=== PATIENT | female | born 1950 | race Caucasian/White ===

== ENCOUNTER 2016-04-01 17:07 | Observation (INO) | payer OTHER, BC ==
[2016-04-01 17:41] LABS: BASOPHIL 0.6 % (0-2.0); EOSINOPHIL 2.2 % (0-4.5); MCH 28.4 pg (25.7-33.7); MEAN CELL VOLUME 88.7 fl (80-96); MEAN PLT VOLUME 8.8 fl (7.5-11.1); NEUTROPHILS 68.1 % (42.8-82.8); PLATELET COUNT 221 K/MM3 (134-434); RDW 14.6 % (11.6-15.6); WHITE BLOOD COUNT 8.7 K/mm3 (4.0-10.0)
[2016-04-01 17:49] LABS: ALBUMIN 3.6 g/dl (3.5-5.0); ALK PHOS 104 U/L (32-92); ANION GAP 5 (8-16); BILIRUBIN,TOTAL 0.7 mg/dl (0.2-1.0); CALCIUM 9.8 mg/dl (8.4-10.2); CO2 28 mmol/L (22-28); CPK(DFH) 28 IU/L (26-140); CREATININE 0.8 mg/dl (0.6-1.3); GLUCOSE,RANDOM 110 mg/dl (74-106); SGOT/AST 54 U/L (10-42); SGPT/ALT 19 U/L (10-40); TOT PROT 7.1 g/dl (6.4-8.3)
--- NOTE | 2016-04-01 17:49 | PDOC ---
History of Present Illness - History of Present Illness Initial Comments: 04/01/16 18:26 Patient is a 65 year old female with significant medical hx of CVA, AFib (on pradaxa and digoxin), HTN, HLD, and DVT who is presenting to the ED via EMS with two hours of pleuritic chest pain and shortness of breath. Patient reports a sudden onset of chest pain that is localized to the center of her chest and is non-radiating. The patient reports that her chest pain did not relieve with the NTG given in the ambulance. The patient is ambulatory at home. Denies fever, chills, strenuous activity, dizziness, nausea, vomiting, lower extremity edema, past MIs or stents. Last stress test and echo: two and a half years ago. PCP: Dr. Diehl <Dorinda Avery - Last Filed: 04/01/16 18:26> <Bere Smyth - Last Filed: 04/01/16 18:55> - General Chief Complaint: Chest Pain Stated Complaint: CHEST PAIN Time Seen by Provider: 04/01/16 17:11 Past History <Dorinda Avery - Last Filed: 04/01/16 18:26> - Past Medical History Anemia: No Asthma: No Cancer: No Cardiac Disorders: Yes (ATRIAL FIBRILLATION) CVA: Yes (04/2010) COPD: No CHF: No Dementia: No Diabetes: No GI Disorders: No Disorders: No HTN: Yes Hypercholesterolemia: Yes Liver Disease: No Seizures: No Thyroid Disease: No - Surgical History Abdominal Surgery: Yes Appendectomy: No Cardiac Surgery: No Cholecystectomy: Yes Lung Surgery: No Neurologic Surgery: No Orthopedic Surgery: Yes - Psycho/Social/Smoking Cessation Hx Anxiety: No Suicidal Ideation: No Smoking History: Never smoked Have you smoked in the past 12 months: No Hx Alcohol Use: Yes (weekends) Substance Use Type: None Hx Substance Use Treatment: No <Bere Smyth - Last Filed: 04/01/16 18:55> - Past Medical History Allergies/Adverse Reactions: Allergies Allergy/AdvReac Type Severity Reaction Status Date / Time No Known Allergies Allergy Verified 04/01/16 17:09 Home Medications: Ambulatory Orders Atorvastatin Calcium 10 mg PO HS 04/01/16 Dabigatran Etexilate Mesylate [Pradaxa -] 150 mg PO BID 04/01/16 Digoxin [Digitek] 125 mcg PO DAILY 04/01/16 Metoprolol Tartrate [Lopressor -] 25 mg PO BID 04/01/16 Ramipril 5 mg PO DAILY 04/01/16 Review of Systems - Review of Systems Comments:: 04/01/16 18:27 CONSTITUTIONAL: Absent: fever, chills, diaphoresis, generalized weakness, malaise, loss of appetite HEENT: Absent: rhinorrhea, nasal congestion, throat pain, throat swelling, difficulty swallowing, mouth swelling, ear pain, eye pain, visual changes CARDIOVASCULAR: Present: pleuritic chest pain Absent: syncope, palpitations, irregular heart rate, lightheadedness, peripheral edema RESPIRATORY: Present: shortness of breath Absent: cough, dyspnea with exertion, orthopnea, wheezing, stridor, hemoptysis GASTROINTESTINAL: Absent: abdominal pain, abdominal distension, nausea, vomiting, diarrhea, constipation, melena, hematochezia GENITOURINARY: Absent: dysuria, frequency, urgency, hesitancy, hematuria, flank pain, genital pain MUSCULOSKELETAL: Absent: myalgia, arthralgia, joint swelling SKIN: Absent: rash, itching, pallor HEMATOLOGIC/IMMUNOLOGIC: Absent: easy bleeding, easy bruising, lymphadenopathy, frequent infections ENDOCRINE: Absent: unexplained weight gain, unexplained weight loss, heat intolerance, cold intolerance NEUROLOGIC: Absent: headache, focal weakness or paresthesia, dizziness, unsteady gait, seizure, mental status changes, bladder or bowel incontinence. PSYCHIATRIC: Absent: anxiety, depression, suicidal or homicidal ideation, hallucinations <Dorinda Avery - Last Filed: 04/01/16 18:26> *Physical Exam - Vital Signs Last Vital Signs Temp Pulse Resp BP Pulse Ox 98 F 77 18 162/60 98 04/01/16 17:10 04/01/16 17:10 04/01/16 17:10 04/01/16 17:10 04/01/16 17:10 - Physical Exam Comments: 04/01/16 18:28 GENERAL: Morbidly obese. Awake and alert. No acute distress. HEENT: Normocephalic, atraumatic. PERRLA, EOMI. No conjunctival pallor. Sclera are non- icteric. Moist mucous membranes. Oropharynx is clear. NECK: Supple. Full ROM. No JVD. Carotid pulses 2+ and symmetric, without bruits. No thyromegaly. No lymphadenopathy. CARDIOVASCULAR: Reproducible midsternal chest pain. Regular rate and rhythm. Systolic murmur. No rubs or gallops. Distal pulses are 2+ and symmetric. PULMONARY: No evidence of respiratory distress. Lungs clear to auscultation bilaterally. No wheezing, rales or rhonchi. ABDOMINAL: Soft. Non-tender. Non-distended. No rebound or guarding. No organomegaly. Normoactive bowel sounds. MUSCULOSKELETAL: Normal range of motion at all joints. No bony deformities or tenderness. No CVA tenderness. EXTREMITIES: No cyanosis. No clubbing. No edema. No calf tenderness. SKIN: Warm and dry. Normal capillary refill. No rashes. No jaundice. NEUROLOGICAL: Alert, awake, appropriate. Cranial nerves 2-12 intact. Normal speech. Gait is normal without ataxia. PSYCHIATRIC: Cooperative. Good eye contact. Appropriate mood and affect. <Dorinda Avery - Last Filed: 04/01/16 18:26> - Vital Signs Last Vital Signs Temp Pulse Resp BP Pulse Ox 98 F 77 18 162/60 98 04/01/16 17:10 04/01/16 17:10 04/01/16 17:10 04/01/16 17:10 04/01/16 17:10 <Bere Smyth - Last Filed: 04/01/16 18:55> Heart Score/ECG Review #1 04/01/16 18:29 Atrial fibrillation at 73 bpm Abnormal ECG <Dorinda Avery - Last Filed: 04/01/16 18:26> ED Treatment Course - LABORATORY CBC & Chemistry Diagram: 04/01/16 17:20 04/01/16 17:20 - ADDITIONAL ORDERS Additional order review: Laboratory Results 04/01/16 04/01/16 04/01/16 17:20 17:20 17:20 INR 1.30 H PTT (Actin FS) 35.7 Sodium 137 Potassium 4.5 Chloride 104 Carbon Dioxide 28 Anion Gap 5 L BUN 13 D Creatinine 0.8 Creat Clearance w eGFR > 60 Random Glucose 110 H Calcium 9.8 Total Bilirubin 0.7 AST 54 H D ALT 19 D Alkaline Phosphatase 104 H D Creatine Kinase 28 Troponin I < 0.03 L Total Protein 7.1 D Albumin 3.6 D 04/01/16 17:20 RBC 4.96 D MCV 88.7 MCHC 32.0 RDW 14.6 MPV 8.8 Neutrophils % 68.1 Lymphocytes % 20.9 D Monocytes % 8.2 Eosinophils % 2.2 D Basophils % 0.6 <Dorinda Avery - Last Filed: 04/01/16 18:26> - LABORATORY CBC & Chemistry Diagram: 04/01/16 17:20 04/01/16 17:20 <Bere Smyth - Last Filed: 04/01/16 18:55> *DC/Admit/Observation/Transfer - Attestations Scribe Attestion: 04/01/16 18:30 Documentation prepared by Dorinda Avery, acting as medical oncologist for Bere Smyth MD. <Dorinda Avery - Last Filed: 04/01/16 18:26> - Discharge Dispostion Admit: Yes <Bere Smyth - Last Filed: 04/01/16 18:55> Diagnosis at time of Disposition: Chest pain in adult Atrial fibrillation Qualifiers: Atrial fibrillation type: chronic Qualified Code(s): I48.2 - Chronic atrial fibrillation - Discharge Dispostion Condition at time of disposition: Guarded - Referrals Referrals: Billy Diehl [Primary Care Provider] - Dilip Merritt MD [Staff Physician] -
[2016-04-01 17:57] LABS: TROPONIN I (DFP) < 0.03 ng/ml (0.03-0.50)
[2016-04-01] MEDS ORDERED: ACETAMINOPHEN INJECTION 100 ML IVPB ONE (17:58)
[2016-04-01 18:00] LABS: ACTIVATED PTT 35.7 SECONDS (24.0-38.9)
[2016-04-01 18:04] LABS: INR 1.3 (0.82-1.09); PROTHROMBIN TIME (PATIENT) 14.2 SEC (10.2-13.0)
[2016-04-01] MEDS ORDERED: ACETAMINOPHEN 1000 MG/100 ML VIAL (NON FORMULARY) IVPB ONE (18:43)
--- NOTE | 2016-04-01 21:06 | HP ---
<Dinora Bishop - Last Filed: 04/01/16 22:16> CHIEF COMPLAINT: Mid Sternal Chest pain PCP: Dr. Diehl HISTORY OF PRESENT ILLNESS: The patient is a 65 yo F with a PMHx of CVA, AFib (on pradaxa and digoxin), HTN , HLD, DVT who presented to the ED today via EMS with sudden onset of mid sternal, nonradiating chest pain with associated shortness of breath. The patient states reports chest pain is exacerbated upon deep inspiration. Patient reports NTG administered by EMS did not alleviate the pain. Upon evaluation, patient currently endorses mild chest pain (4/10 in severity). She denies any headache, dizziness, lightheadedness or diaphoresis. She denies any fever, chills, nausea, vomiting, diarrhea, constipation or abdominal pain. She denies any dysuria, frequency, urgency or hematuria. ER course was notable for: (1) Troponin 0.03 (2) EKG without ST changes (3) Chest Xray Recent Travel: Denies PAST MEDICAL HISTORY: Atrial Fibrillation Hypertension DVT CVA with bilateral upper extremity residual weakness Hyperlipidemia PAST SURGICAL HISTORY: Tonsil Removal Surgery Social History: Smoking:Denies Alcohol: Former EtOH Weekend drinker, no current alcohol abuse. Drugs: Denies Family History: Mother- Hodgkin's Disease Father- Liver Cirrhosis Brother- Hepatitis Allergies No Known Allergies Allergy (Verified 04/01/16 17:09) HOME MEDICATIONS: 3 Medication Instructions Recorded Atorvastatin Calcium 10 mg PO HS 04/01/16 Dabigatran Etexilate Mesylate 150 mg PO BID 04/01/16 [Pradaxa -] Digoxin [Digitek] 125 mcg PO DAILY 04/01/16 Metoprolol Tartrate [Lopressor -] 25 mg PO BID 04/01/16 Ramipril 5 mg PO DAILY 04/01/16 REVIEW OF SYSTEMS CONSTITUTIONAL: Absent: fever, chills, diaphoresis, generalized weakness, malaise, loss of appetite, weight change HEENT: Absent: rhinorrhea, nasal congestion, throat pain, throat swelling, difficulty swallowing, mouth swelling, ear pain, eye pain, visual changes CARDIOVASCULAR: +chest pain Absent: syncope, palpitations, irregular heart rate, lightheadedness, peripheral edema RESPIRATORY: + SOB Absent: cough, dyspnea with exertion, orthopnea, wheezing, stridor, hemoptysis GASTROINTESTINAL: Absent: abdominal pain, abdominal distension, nausea, vomiting, diarrhea, constipation, melena, hematochezia GENITOURINARY: Absent: dysuria, frequency, urgency, hesitancy, hematuria, flank pain, genital pain MUSCULOSKELETAL: Absent: myalgia, arthralgia, joint swelling, back pain, neck pain SKIN: Absent: rash, itching, pallor HEMATOLOGIC/IMMUNOLOGIC: Absent: easy bleeding, easy bruising, lymphadenopathy, frequent infections ENDOCRINE: Absent: unexplained weight gain, unexplained weight loss, heat intolerance, cold intolerance NEUROLOGIC: Absent: headache, focal weakness or paresthesias, dizziness, unsteady gait, seizure, mental status changes, bladder or bowel incontinence PSYCHIATRIC: Absent: anxiety, depression, suicidal or homicidal ideation, hallucinations. PHYSICAL EXAMINATION Vital Signs - 24 hr 3 04/01/16 04/01/16 04/01/16 17:10 17:15 20:20 Temperature 98 F 98 F Pulse Rate 77 69 Pulse Rate [ 71 Left Apical] Respiratory 18 16 Rate Blood Pressure 162/60 Blood Pressure 154/98 [Right Arm] O2 Sat by Pulse 98 98 99 Oximetry (%) GENERAL: +Morbidly obese. Awake, alert, and fully oriented, in no acute distress. HEAD: Normal with no signs of trauma. EYES: Pupils equal, round and reactive to light, extraocular movements intact, sclera anicteric, conjunctiva clear. No lid lag. EARS, NOSE, THROAT: Ears normal, nares patent, oropharynx clear without exudates. Moist mucous membranes. NECK: Normal range of motion, supple without lymphadenopathy, JVD, or masses. LUNGS: Breath sounds equal, clear to auscultation bilaterally. No wheezes, and no crackles. No accessory muscle use. HEART: Irregular rate and rhythm, normal S1 and S2 without murmur, rub or gallop. ABDOMEN: Soft, nontender, not distended, normoactive bowel sounds, no guarding, no rebound, no masses. No hepatomegaly or splenomegaly. MUSCULOSKELETAL: Normal range of motion at all joints. No bony deformities or tenderness. No CVA tenderness. UPPER EXTREMITIES: 2+ pulses, warm, well-perfused. No cyanosis. No clubbing. Cap refill <2 seconds. No peripheral edema. LOWER EXTREMITIES: 2+ pulses, warm, well-perfused. No calf tenderness. No peripheral edema. NEUROLOGICAL: Cranial nerves II-XII intact. Normal speech. Normal gait. PSYCHIATRIC: Cooperative. Good eye contact. Appropriate mood and affect. SKIN: Warm, dry, normal turgor, no rashes or lesions noted. Laboratory Results - last 24 hr 3 04/01/16 04/01/16 04/01/16 17:20 17:20 17:20 WBC 8.7 RBC 4.96 D Hgb 14.1 D Hct 44.0 D MCV 88.7 MCHC 32.0 RDW 14.6 Plt Count 221 MPV 8.8 Neutrophils % 68.1 Lymphocytes % 20.9 D Monocytes % 8.2 Eosinophils % 2.2 D Basophils % 0.6 INR 1.30 H PTT (Actin FS) 35.7 Sodium 137 Potassium 4.5 Chloride 104 Carbon Dioxide 28 Anion Gap 5 L BUN 13 D Creatinine 0.8 Creat Clearance w eGFR > 60 Random Glucose 110 H Calcium 9.8 Total Bilirubin 0.7 AST 54 H D ALT 19 D Alkaline Phosphatase 104 H D Creatine Kinase 28 Troponin I < 0.03 L Total Protein 7.1 D Albumin 3.6 D EKG Afib with rate of [address]-T wave changes Chest Xray No obvious infiltrates or effusions. Final read pending. Documentation prepared by Dinora Bishop, acting as medical massage therapist for Yakelin Soni NP <Yakelin Soni - Last Filed: 04/02/16 06:49> ASSESSMENT AND PLAN 65yF with a PMHx of CVA, AFib (on pradaxa and digoxin), HTN, HLD, DVT who presented to the ED today via EMS with sudden onset of mid sternal, nonradiating chest pain with associated shortness of breath. She is being admitted for observation to r/o [place]. Chest pain - troponin neg x 2, trend x 1 more - pain improved after IV tylenol in ED - no response to NTG in ED - continuous cardiac monitoring - likely not cardiac, reproducible on palpation, if troponin neg x 3, and no ectopy on monitor, can go home and f/u with PCP/comparison shopper for further outpt workup atrial fibrillation - cont dig, metoprolol as rate controlled - cont pradaxa for CVA PPX HTN - cont lopressor, BP well controlled DVT PPX - on pradaxa FEN - tolerating po, defer IVF - BMP stable - low sodium diet as tolerated Dispo: Pt currently requires cardiac monitoring/observation. Visit type - Emergency Visit Emergency Visit: Yes ED Registration Date: 04/01/16 Care time: The patient presented to the Emergency Department on the above date and was hospitalized for further evaluation of their emergent condition. - New Patient This patient is new to me today: Yes Date on this admission: 04/01/16 - Critical Care Critical Care patient: No
[2016-04-01] MEDS: DABIGATRAN ETEXILATE MESYLATE 150 MG CAPSULE PO SCH (21:42)
[2016-04-01] MEDS: METOPROLOL TARTRATE 25 MG TABLET (FP) PO SCH (21:42)
[2016-04-01] MEDS: ATORVASTATIN CA 10 MG TABLET (FP) PO SCH (21:42)
[2016-04-01 22:29] VITALS: BMI 39.3
[2016-04-01] MEDS ORDERED: INFLUENZA VACCINE 45 MCG/0.5 ML (MDV 16-17) IM ONE (22:29)
[2016-04-02 09:37] LABS: CPK(DFH) 28 IU/L (26-140)
[2016-04-02] MEDS: DABIGATRAN ETEXILATE MESYLATE 150 MG CAPSULE PO SCH ×2 (09:45→21:35)
[2016-04-02] MEDS: DIGOXIN 0.125 MG TABLET (FP) PO SCH (09:51)
[2016-04-02] MEDS ORDERED: RAMIPRIL 5 MG CAPSULE (FP) PO SCH (10:00)
[2016-04-02 10:21] LABS: TROPONIN I (DFP) < 0.03 ng/ml (0.03-0.50)
--- NOTE | 2016-04-02 12:29 | PN ---
Physical Exam: SUBJECTIVE: Patient seen and examined, patient reports feeling well, denies any chest pain or shortness of breath.. OBJECTIVE: patient is a 65 yo F with a PMHx of CVA, AFib (on pradaxa and digoxin), HTN, HLD, DVT, patient was admitted to observations for chest pain. Vital Signs Period Temp Pulse Resp BP Sys/Saleem Pulse Ox Last 24 Hr 97.4 F-98.2 F 45-76 16-20 150-161/90-98 95-99 GENERAL: +Morbidly obese. Awake, alert, and fully oriented, in no acute distress. HEAD: Normal with no signs of trauma. EYES: Pupils equal, round and reactive to light, extraocular movements intact, sclera anicteric, conjunctiva clear. No lid lag. EARS, NOSE, THROAT: Ears normal, nares patent, oropharynx clear without exudates. Moist mucous membranes. NECK: Normal range of motion, supple without lymphadenopathy, JVD, or masses. LUNGS: Breath sounds equal, clear to auscultation bilaterally. No wheezes, and no crackles. No accessory muscle use. HEART: Irregular rate and rhythm, normal S1 and S2 without murmur, rub or gallop. ABDOMEN: Soft, nontender, not distended, normoactive bowel sounds, no guarding, no rebound, no masses. No hepatomegaly or splenomegaly. MUSCULOSKELETAL: Normal range of motion at all joints. No bony deformities or tenderness. No CVA tenderness. UPPER EXTREMITIES: 2+ pulses, warm, well-perfused. No cyanosis. No clubbing. Cap refill <2 seconds. No peripheral edema. LOWER EXTREMITIES: 2+ pulses, warm, well-perfused. No calf tenderness. No peripheral edema. NEUROLOGICAL: Cranial nerves II-XII intact. Normal speech. Normal gait. PSYCHIATRIC: Cooperative. Good eye contact. Appropriate mood and affect. SKIN: Warm, dry, normal turgor, no rashes or lesions noted. Laboratory Results - last 24 hr 04/01/16 04/02/16 04/02/16 20:00 07:00 07:00 Creatine Kinase 28 Troponin I 0.00 < 0.03 L Digoxin 0.3659 L 04/02/16 04/02/16 08:10 08:10 Creatine Kinase Cancelled Troponin I Cancelled Cancelled Digoxin Active Medications Generic Name Dose Route Start Last Admin Trade Name Freq PRN Reason Stop Dose Admin Atorvastatin Calcium 10 mg 04/01/16 22:00 04/01/16 21:42 Lipitor - PO 10 mg HS IZABELA Administration Dabigatran 150 mg 04/01/16 22:00 04/02/16 09:45 Pradaxa - PO 150 mg BID IZABELA Administration Digoxin 0.125 mg 04/02/16 10:00 04/02/16 09:51 Lanoxin - PO Not Given DAILY [facility] Metoprolol Tartrate 25 mg 04/01/16 22:00 04/01/16 21:42 Lopressor - PO 25 mg BID IZABELA Administration Ramipril 5 mg 04/02/16 10:00 Altace - PO DAILY [facility] ASSESSMENT/PLAN: 1) card Chest pain - pain relieved after tylenol, not cardiac on orgin - troponin x 3 wnl afib -slow ventricular rate noted, pt is asymptomatic - digoxin wnl, lopressor held HTN - ramipril increased to 10mg - appreciate cardiology input DVT PPX - on pradaxa FEN - tolerating po, defer IVF - BMP stable - low sodium diet as tolerated Dispo: Pt currently requires cardiac monitoring/observation. Visit type - Emergency Visit Emergency Visit: Yes ED Registration Date: 04/01/16 Care time: The patient presented to the Emergency Department on the above date and was hospitalized for further evaluation of their emergent condition. - New Patient This patient is new to me today: No - Critical Care Critical Care patient: No - Discharge Referral Referred to [facility] Med P.C.: No
[2016-04-02] MEDS ORDERED: RAMIPRIL 5 MG CAPSULE (FP) PO ONE ×2 (13:15→14:45)
[2016-04-02] MEDS: METOPROLOL TARTRATE 25 MG TABLET (FP) PO SCH (14:01)
--- NOTE | 2016-04-02 15:20 | CON.CARD ---
Cardiology Consult (text) - Consultation Consultation Note: CC: bradycardia hpi: 65 with hx htn, afib on pradaxa, cva, carotid stenosis (chronic LICA occlusion, plaque in CRISTAL), hld, here with cp, noted to have bradycardia over night. Patient remained asymptomatic. Digoxin and metoprolol held today. BP slightly elevated and was given an extra 5 mg of ramipril. Denies prior h/o syncope/ presyncope, but documented presyncope 2013 (was not tania on that admission) Presenting cp now resolved. (ttp, non-exertional) At baseline patient only ambulates in home, but mainly sits all day 2/2 LE weakness and discomfort. Chronic fatigue. Chronic mild LE edema. No orthopnea, pnd, sob, palps, dizziness, bleeding or transient neurologic symptoms. No f/c/s, n/v/d, h/a, rashes, visual disturbances. Cardio Dr Diehl. pmh: per hpi psh: cholecystectomy social: no tob, social etoh ros: per hpi fam: no cardiac hx meds: Ambulatory Orders Atorvastatin Calcium 10 mg PO HS 04/01/16 Dabigatran Etexilate Mesylate [Pradaxa -] 150 mg PO BID 04/01/16 Digoxin [Digitek] 125 mcg PO DAILY 04/01/16 Metoprolol Tartrate [Lopressor -] 25 mg PO BID 04/01/16 Ramipril 5 mg PO DAILY 04/01/16 Current Medications Atorvastatin Calcium (Lipitor -) 10 mg PO HS [facility] Last Admin: 04/01/16 21:42 Dose: 10 mg Dabigatran (Pradaxa -) 150 mg PO BID [facility] Last Admin: 04/02/16 09:45 Dose: 150 mg Digoxin (Lanoxin -) 0.125 mg PO DAILY [facility] Last Admin: 04/02/16 09:51 Dose: Not Given Metoprolol Tartrate (Lopressor -) 25 mg PO BID [facility] Last Admin: 04/02/16 14:01 Dose: Not Given Ramipril (Altace -) 10 mg PO DAILY [facility] Vital Signs - 24 hr 04/01/16 04/01/16 04/01/16 17:10 17:15 20:20 Temperature 98 F 98 F Pulse Rate 77 69 Pulse Rate [ 71 Left Apical] Respiratory 18 16 Rate Blood Pressure 162/60 Blood Pressure 154/98 [Right Arm] O2 Sat by Pulse 98 98 99 Oximetry (%) 04/01/16 04/02/16 04/02/16 21:00 02:56 06:29 Temperature 98.2 F 97.4 F L Pulse Rate 76 54 L Pulse Rate [ Left Apical] Respiratory 20 20 20 Rate Blood Pressure 150/90 161/94 Blood Pressure [Right Arm] O2 Sat by Pulse 95 95 97 Oximetry (%) 04/02/16 04/02/16 09:51 14:33 Temperature 98.5 F Pulse Rate 45 L 57 L Pulse Rate [ Left Apical] Respiratory 18 Rate Blood Pressure 160/80 Blood Pressure [Right Arm] O2 Sat by Pulse 98 Oximetry (%) Intake & Output 03/31/16 04/01/16 04/02/16 04/03/16 07:59 07:59 07:59 07:59 Intake Total 250 850 Output Total 250 Balance 0 850 Weight 251 lb 1 oz nad, no jvd irreg, s1s2 2/6 sys murmur at lsb cta b/l, nl eff aaox3 no le e/c/c abd nt nd pos bs pos dp/pt, no carotid bruits no jaundice/diaphoresis aaox3 CBC, BMP 04/01/16 17:20 04/01/16 17:20 Laboratory Tests 04/01/16 04/01/16 04/01/16 17:20 17:20 20:00 Total Bilirubin 0.7 AST 54 H D ALT 19 D Alkaline Phosphatase 104 H D Troponin I < 0.03 L 0.00 Albumin 3.6 D Digoxin 04/02/16 04/02/16 07:00 07:00 Total Bilirubin AST ALT Alkaline Phosphatase Troponin I < 0.03 L Albumin Digoxin 0.3659 L EKG: afib, 73 bpm. no ischemic changes. tele: rate controlled afib. VR 50's-60's overnight. 60's-80's today. Isolated RR intervals prolonged causing alarms --> but HR trend reasonable. No sig pauses (longest 2.4 sec). cxr: Platelike atelectasis vs. fibrosis left mid lung. echo 02/2014: nl lv s/f, rv tds, mild, mr, mild ar mibi 02/2014: no ischemia a/p: 65 with hx htn, afib on pradaxa, cva, carotid stenosis (chronic LICA occlusion, plaque in CRISTAL), hld, here with cp, noted to have bradycardia. afib: - Has been stable on this rate control regimen for about 7 years. VR, 50s-60' s overnight, benign finding, but given patient's chronic fatigue can give trial of reduced metoprolol dose. (redose metoprolol tartrate 25 mg x 1 tonight and start metoprolol succinate 25 mg/day tomorrow am. digoxin level not supratherapeutic, would continue. Will need close follow up with Dr. Myers to decide whether to resume original dosing. - Continue ac with pradaxa. - Consider sleep study evaluation as outpatient. cp: - Atypical/msk, Resolved No evidence for ACS. htn: - slightly elevated off metoprolol. Would continue increased dose of ramipril ( 10 mg/day) and monitor for improvement. hld: - Stable on statin.
[2016-04-02] MEDS ORDERED: METOPROLOL TARTRATE 25 MG TABLET (FP) PO ONE (17:46)
[2016-04-02] MEDS: ATORVASTATIN CA 10 MG TABLET (FP) PO SCH (21:35)
[2016-04-03 06:25] VITALS: TEMP 98
[2016-04-03 07:46] VITALS: BP 157/87
--- NOTE | 2016-04-03 08:23 | PN ---
Progress Note, Physician Chief Complaint: cp, afib with bradycardia History of Present Illness: no presyncope/dizzy no sob, orthopnea no more cp no palpitations - Current Medication List Current Medications: Active Medications Atorvastatin Calcium (Lipitor -) 10 mg PO HS [facility] Last Admin: 04/02/16 21:35 Dose: 10 mg Dabigatran (Pradaxa -) 150 mg PO BID [facility] Last Admin: 04/02/16 21:35 Dose: 150 mg Digoxin (Lanoxin -) 0.125 mg PO DAILY [facility] Last Admin: 04/02/16 09:51 Dose: Not Given Metoprolol Succinate (Toprol Xl -) 25 mg PO DAILY [facility] Ramipril (Altace -) 10 mg PO DAILY [facility] - Objective Vital Signs: Vital Signs Temperature 98.0 F 04/03/16 06:00 Pulse Rate 71 04/03/16 07:15 Respiratory Rate 17 04/03/16 06:00 Blood Pressure 157/87 04/03/16 07:15 O2 Sat by Pulse Oximetry (%) 97 04/03/16 06:22 Constitutional: Yes: No Distress, Calm, Obese Cardiovascular: Yes: Pulse Irregular, S1, S2. No: Gallop, Murmur Respiratory: Yes: Regular, CTA Bilaterally. No: Accessory Muscle Use, Rales, Wheezes Extremities: No: Cold Edema: No Neurological: Yes: Alert, Oriented Psychiatric: No: Agitated Labs: INR, PTT INR 1.30 (0.82-1.09) H 04/01/16 17:20 - ....Imaging EKG: Other (tele: AF hr's 50s-70s; at times transiently prolonged R-R intervals , longest 2.4 seconds (early am timing)) Assessment/Plan echo 02/2014: nl lv s/f, rv tds, mild, mr, mild ar mibi 02/2014: no ischemia a/p: 65 with hx htn, afib on pradaxa, cva, carotid stenosis (chronic LICA occlusion, plaque in CRISTAL), hld, here with cp, noted to have bradycardia. afib: - Has been stable on metopr 25 bid plus digoxin for years - no h/o tania sx's or syncope - telem here benign--transiently prolonged RR intervals during overnight/early am hours are related to normal enhanced vagal tone and have no pathological implications - metopr changed to qd here, reasonable given her chronic fatigue (if no better as outpt, and HRs ok, dr vidal can consider going back up to bid) - cont dig (level good here) - Continue ac with pradaxa. - no further inpt cardio w/u needed atypical cp: - pleuritic features, overall appears to have been m-skel etiology, ? costochondritis; - sx's resolved - no isch ecg changes, trop neg x 4, - no further inpt w/u required htn: - 130s-150s at present -cont metopr and ramipril as doing hld: - Stable on statin.
[2016-04-03] MEDS ORDERED: METOPROLOL SUCCINATE 25 MG TAB.SR.24H (FP) PO SCH (10:00)
[2016-04-03] MEDS ORDERED: RAMIPRIL 5 MG CAPSULE (FP) PO SCH (10:00)
[2016-04-03 10:25] VITALS: PULSE 56
[2016-04-03] MEDS: DIGOXIN 0.125 MG TABLET (FP) PO SCH (10:25)
[2016-04-03] MEDS: DABIGATRAN ETEXILATE MESYLATE 150 MG CAPSULE PO SCH (10:25)
[2016-04-03 10:26] LABS: BASOPHIL 0.9 % (0-2.0); EOSINOPHIL 2.5 % (0-4.5); MCHC 32.5 g/dl (32.0-36.0); MEAN PLT VOLUME 8.8 fl (7.5-11.1); NEUTROPHILS 68.6 % (42.8-82.8); PLATELET COUNT 230 K/MM3 (134-434); RDW 14.4 % (11.6-15.6); WHITE BLOOD COUNT 9.4 K/mm3 (4.0-10.0)
[2016-04-03 11:11] LABS: CALCIUM 10.1 mg/dl (8.4-10.2); CREATININE 0.9 mg/dl (0.6-1.3)
--- NOTE | 2016-04-03 12:03 | DS ---
Physical Exam: SUBJECTIVE: Patient seen and examined. Reports no further chest pain or SOB. No further episodes severe bradycardia noted on monitor. OBJECTIVE: Vital Signs - 24 hr 3 04/02/16 04/02/16 04/02/16 14:33 21:00 22:00 Temperature 98.5 F Pulse Rate 57 L 80 Respiratory 18 18 18 Rate Blood Pressure 160/80 139/72 O2 Sat by Pulse 98 98 Oximetry (%) 3 04/03/16 04/03/16 04/03/16 06:00 06:22 07:15 Temperature 98.0 F Pulse Rate 62 71 Respiratory 17 Rate Blood Pressure 132/73 157/87 O2 Sat by Pulse 97 Oximetry (%) PHYSICAL EXAM GENERAL: The patient is awake, alert, and fully oriented, in no acute distress. HEAD: Normal with no signs of trauma. EYES: PERRL, extraocular movements intact, sclera anicteric, conjunctiva clear. ENT: Ears normal, nares patent, oropharynx clear without exudates, moist mucous membranes. NECK: Trachea midline, full range of motion, supple. LUNGS: Breath sounds equal, clear to auscultation bilaterally, no wheezes, no crackles, no accessory muscle use. HEART: Regular rate and rhythm, S1, S2 without murmur, rub or gallop. ABDOMEN: Soft, nontender, nondistended, normoactive bowel sounds, no guarding, no rebound, no hepatosplenomegaly, no masses. EXTREMITIES: 2+ pulses, warm, well-perfused, no edema. NEUROLOGICAL: Cranial nerves II through XII grossly intact. Normal speech, gait not observed. PSYCH: Normal mood, normal affect. SKIN: Warm, dry, normal turgor, no rashes or lesions noted. Laboratory Results - last 24 hr 3 04/02/16 04/03/16 04/03/16 07:00 10:00 10:00 WBC 9.4 RBC 4.73 Hgb 13.7 Hct 42.1 MCV 89.0 MCHC 32.5 RDW 14.4 Plt Count 230 MPV 8.8 Neutrophils % 68.6 Lymphocytes % 20.0 Monocytes % 8.0 Eosinophils % 2.5 Basophils % 0.9 Sodium 141 Potassium 5.3 H Chloride 107 Carbon Dioxide 28 Anion Gap 6 L BUN 12 Creatinine 0.9 Random Glucose 108 H Calcium 10.1 Digoxin 0.3659 L HOSPITAL COURSE: Date of Admission:04/01/16 Date of Discharge: 04/03/16 The patient is a 65 yo F with a PMHx of CVA, AFib (on pradaxa and digoxin), HTN , HLD, DVT who presented to the ED on 04/01/16 via EMS with sudden onset of mid sternal, nonradiating chest pain with associated shortness of breath. Acute AZ ruled out; troponin negative x 3. pt was noted with episodes of bradycardia on monitor overnight 04/01-04/02. Digoxin and metoprolol held with no further bradycardic episodes. Pt evaluated by cardiology with recommendation to change lopressor 25mg BID to toprol Xl 25mg and increase ramipril to 10mg. Pt cleared for dc home from cardiology standpoint. Labs this morning revealed potassium 5.3. Pt advised to contact PCP Tuesday morning to schedule repeat labs VIET. Pt dc home. chest pain - acute AZ r/o - f/u with PCP Afib with bradycardia - DC lopressor 25mg BID, start toprol 25mg daily, cont digoxin HTN - increase ramipril to 10mg qd Hyperkalemia - borderline, f/u with PCP for repeat labs on tuesday HLD - cont statin Minutes to complete discharge: 45 Discharge Summary Reason For Visit: CHEST PAIN Current Active Problems Atrial fibrillation (Acute) Chest pain in adult (Acute) Condition: Stable - Instructions Diet, Activity, Other Instructions: Return to the emergency room for new, worsening or persistent symptoms. Your potassium on day of discharge was 5.3 which is borderline high. You must follow up with Dr. Diehl for repeat blood work VIET next week. Referrals: Billy Diehl [Primary Care Provider] - (call tuesday for repeat lab work) Disposition: HOME - Home Medications Comprehensive Discharge Medication List: Ambulatory Orders Atorvastatin Calcium 10 mg PO HS 04/01/16 Dabigatran Etexilate Mesylate [Pradaxa -] 150 mg PO BID 04/01/16 Digoxin [Digitek] 125 mcg PO DAILY 04/01/16 Metoprolol Succinate [Toprol XL -] 25 mg PO DAILY #30 tab.sr.24h 04/03/16 Ramipril [Altace] 10 mg PO DAILY #30 capsule 04/03/16 This patient is new to me today: No Emergency Visit: Yes ED Registration Date: 04/01/16 Care time: The patient presented to the Emergency Department on the above date and was hospitalized for further evaluation of their emergent condition. Critical Care patient: No - Discharge Referral Referred to [facility] No
--- NOTE | 2016-04-05 14:44 | EKG ---
Test Reason : Blood Pressure : / mmHG Vent. Rate : 073 BPM Atrial Rate : 068 BPM P-R Int : 000 ms QRS Dur : 078 ms QT Int : 398 ms P-R-T Axes : 000 -11 -02 degrees QTc Int : 438 ms ATRIAL FIBRILLATION ABNORMAL ECG NO PREVIOUS ECGS AVAILABLE Confirmed by QUINTON MONTOYA MD ([id number] on 04/05/2016 2:43:45 PM Referred By: MD TERRAZAS Confirmed By:QUINTON MONTOYA MD
== END 2016-04-03 12:04 | disposition home or self-care (01) ==
LOC: SUPCPDRO 17:07 → FER 17:07 → FM/S 19:39
PROVIDERS: ADMIT Internal Medicine; ATTEND Nurse Practitioner Family
DX: R07.9 Chest pain, unspecified (principal); I48.91 Unspecified atrial fibrillation; R00.1 Bradycardia, unspecified; I10 Essential (primary) hypertension; E87.5 Hyperkalemia; E78.5 Hyperlipidemia, unspecified; Z86.73 Personal history of transient ischemic attack (TIA), and cerebral infarction without residual deficits; Z86.718 Personal history of other venous thrombosis and embolism; Z79.01 Long term (current) use of anticoagulants; E66.01 Morbid (severe) obesity due to excess calories; Z68.39 Body mass index [BMI] 39.0-39.9, adult; R53.82 Chronic fatigue, unspecified
CPT/HCPCS: 36415; 71010-TC; 80048; 80053; 80162; 82550; 84484; 85025; 85610; 85730; 93005; 99284-25; G0378

== ENCOUNTER 2017-04-17 14:20 | Emergency (ER) | payer OTHER, BC ==
[2017-04-17 14:30] VITALS: TEMP 98.6; BMI 39.1
--- NOTE | 2017-04-17 14:43 | PDOC ---
Attending Attestation - Resident Resident Name: Dc Mobley - HPI HPI: 04/17/17 16:10 Pt presents to the ED complaining of vaginal bleeding that started 6 days ago. Bleeding was light initially, but has becoming increasing heavy over the last several days. Denies lightheadness or pelvic pain. Has had similar episodes in the past, but they resolved spontaneously and did not have medical evaluation at that time. 04/17/17 16:17 - Physicial Exam PE: 04/17/17 16:24 Agree with resident exam. Patient is well appearing and in no acute distress. + moderate blood in the vaginal vault on pelvic exam. + small clots. Os closed. - Medical Decision Making 04/19/17 02:59 Pt presents to the ED with post menopausal vaginal bleeding. Moderate bleeding observed on exam, labs checked to rule out severe anemia and are negative. Will instruct patient to hold her anticoagulants until she speaks with her sap gatherer tomorrow and discharge home with OB follow up.
--- NOTE | 2017-04-17 15:01 | PDOC ---
History of Present Illness - General Chief Complaint: Vaginal Bleeding Stated Complaint: VAGINAL BLEEDING Time Seen by Provider: 04/17/17 14:40 History Source: Patient Exam Limitations: No Limitations - History of Present Illness Initial Comments: 04/17/17 14:56 The patient is a 66F with a PMH of CVA, AFib (on pradaxa and digoxin), HTN, HLD , DVT who presents to the ER with complaints of vaginal bleeding. The patient states that she began spotting on Tuesday, which continued, then 2 days ago it became heavier. She states that she has used 4 pads/day and she is not sure if there are clots or not because she can't see 04/15 glaucoma. She says this happened 1 year ago but it never progressed to the heavy bleeding and she didn' t see any doctor for it. Her daughter states that it happened once before then in 2010 or 2011 and she also did not see a physician for it. She denies any CP, SOB, lightheadedness, or palpitations. Past History - Past Medical History Allergies/Adverse Reactions: Allergies Allergy/AdvReac Type Severity Reaction Status Date / Time No Known Allergies Allergy Verified 04/17/17 14:22 Home Medications: Ambulatory Orders Atorvastatin Calcium 10 mg PO HS 04/01/16 Dabigatran Etexilate Mesylate [Pradaxa -] 150 mg PO BID 04/01/16 Digoxin [Digitek] 125 mcg PO DAILY 04/01/16 Metoprolol Succinate [Toprol XL -] 25 mg PO DAILY #30 tab.sr.24h 04/03/16 Beta-Carotene(A) W-C and E/Min [Ocuvite (Nf)] 1 tab PO DAILY 04/17/17 Cholecalciferol (Vitamin D3) [Vitamin D3] 3,000 unit PO DAILY 04/17/17 Multivit-Min/FA/Lycopen/Lutein [Centrum Silver Tablet] 1 each PO DAILY 04/17/17 Ramipril [Altace] 5 mg PO BID 04/17/17 Anemia: No Asthma: No Cancer: No Cardiac Disorders: Yes (ATRIAL FIBRILLATION) CVA: Yes (04/2010) COPD: No CHF: No Dementia: No Diabetes: No GI Disorders: No Disorders: No HTN: Yes Hypercholesterolemia: Yes Liver Disease: No Seizures: No Thyroid Disease: No - Surgical History Abdominal Surgery: Yes Appendectomy: No Cardiac Surgery: No Cholecystectomy: Yes Lung Surgery: No Neurologic Surgery: No Orthopedic Surgery: Yes - Suicide/Smoking/Psychosocial Hx Smoking History: Never smoked Have you smoked in the past 12 months: No Hx Alcohol Use: No Substance Use Type: None Hx Substance Use Treatment: No Review of Systems - Review of Systems Able to Perform ROS?: Yes Comments:: 04/17/17 15:00 GENERAL/CONSTITUTIONAL: No fever or chills. No weakness. HEAD, EYES, EARS, NOSE AND THROAT: No change in vision. No ear pain or discharge. No sore throat. CARDIOVASCULAR: No chest pain, palpitations, or lightheadedness. RESPIRATORY: No cough, wheezing, shortness of breath, or hemoptysis. GASTROINTESTINAL: No nausea, vomiting, diarrhea, constipation, or abdominal pain. GENITOURINARY: Positive for vaginal bleeding. No dysuria, frequency, hematuria, or change in urination. MUSCULOSKELETAL: No joint or muscle swelling or pain. No neck or back pain. SKIN: No rash or lesions. NEUROLOGIC: No headache, numbness, tingling, weakness, loss of consciousness, or change in strength/sensation. ENDOCRINE: No increased thirst. No abnormal weight change. HEMATOLOGIC/LYMPHATIC: No anemia, easy bleeding, or history of blood clots. ALLERGIC/IMMUNOLOGIC: No hives or skin allergy. Is the patient limited Burmese proficient: No *Physical Exam - Vital Signs Last Vital Signs Temp Pulse Resp BP Pulse Ox 98.6 F 86 18 146/102 96 04/17/17 14:20 04/17/17 14:20 04/17/17 14:20 04/17/17 14:20 04/17/17 14:20 - Physical Exam Comments: 04/17/17 15:02 GENERAL: Well developed, well nourished. Awake and alert. No acute distress. HEENT: Normocephalic, atraumatic. Hearing grossly normal. Moist mucous membranes. PERRLA, EOMI. No conjunctival pallor. Sclera are non-icteric. NECK: Supple. Full ROM. No JVD. CARDIOVASCULAR: Regular rate and rhythm. No murmurs, rubs, or gallops. PULMONARY: No evidence of respiratory distress. Lungs clear to auscultation bilaterally. No wheezing, rales or rhonchi. ABDOMINAL: Soft. Non-tender. Non-distended. No rebound or guarding. GENITOURINARY: No CVA tenderness bilaterally. PELVIC: Mild blood and clots seen in vaginal vault. No hemorrhage noted. Dried blood seen on labia externally. MUSCULOSKELETAL: Normal range of motion at all joints. No bony deformities or tenderness. EXTREMITIES: No cyanosis. No clubbing. No edema. No calf tenderness. SKIN: Warm and dry. Normal capillary refill. No rashes. No jaundice. NEUROLOGICAL: Alert, awake, appropriate. Cranial nerves 2-12 intact. Normal speech. Gait is normal without ataxia. PSYCHIATRIC: Cooperative. Good eye contact. Appropriate mood and affect. ED Treatment Course - LABORATORY CBC & Chemistry Diagram: 04/17/17 15:00 04/17/17 15:00 Medical Decision Making - Medical Decision Making 04/17/17 15:15 The patient is a 66F with an extensive PMH who presents with worsening vaginal bleeding. Will order labs and perform a pelvic exam. Pending labs. 04/17/17 16:17 Pelvic exam not significant. Will put OB referral in d/c. *DC/Admit/Observation/Transfer Diagnosis at time of Disposition: Vaginal bleeding - Discharge Dispostion Disposition: HOME Condition at time of disposition: Stable Admit: No - Referrals Referrals: Billy Diehl [Primary Care Provider] - Valdez Merchant MD [Staff Physician] - - Patient Instructions Printed Discharge Instructions: DI for Vaginal Bleeding Additional Instructions: Please return to the ER if symptoms persist, worsen, or new symptoms arise. Please follow up with your primary care physician in 2-[address] Merchant (production control manager) for an appointment on Tuesday. Please call your chipper tomorrow morning to see if you should continue the Pradaxa. Please inform them that you are bleeding. Please return to the ER if you have any signs or symptoms of chest pain, shortness of breath, uncontrollable fever, chills, nausea, vomiting, numbness, tingling, or weakness in any part of your body, changes in vision, or slurred speech. - Post Discharge Activity
[2017-04-17 15:24] LABS: BASO % 0.8 % (0-2.0); HEMATOCRIT 44.2 % (32.4-45.2); HEMOGLOBIN 14.3 GM/dl (10.7-15.3); LYMPH % 18.9 % (8-40); MCH 30.3 pg (25.7-33.7); MCHC 32.5 g/dl (32.0-36.0); MEAN CELL VOLUME 93.4 fl (80-96); MEAN PLT VOLUME 9.7 fl (7.5-11.1); MONO % 5.4 % (3.8-10.2); NEUT % 72.9 % (42.8-82.8); PLATELET COUNT 195 K/MM3 (134-434); RBC 4.73 M/mm3 (3.60-5.2); RDW 13.7 % (11.6-15.6); WHITE BLOOD COUNT 7.7 K/mm3 (4.0-10.8)
[2017-04-17 15:35] LABS: ACTIVATED PTT 51.2 SECONDS (24.0-38.9)
[2017-04-17 15:38] LABS: PH,URINE 5.5 (4.5-8); URINE BILIRUBIN Negative (NEGATIVE); URINE GLUCOSE (UA) Negative (NEGATIVE); URINE KETONE Negative (NEGATIVE); URINE NITRITE Negative (NEGATIVE); URINE UROBILINOGEN 0.2 (0.2-1.0)
[2017-04-17 15:40] LABS: INR 1.41 (0.82-1.09); PROTHROMBIN TIME (PATIENT) 15.7 SEC (10.2-13.0)
[2017-04-17 15:45] LABS: URINE APPEARANCE BLOODY; URINE BLOOD 3+ (NEGATIVE); URINE COLOR RED; URINE LEUK ESTERASE TRACE (NEGATIVE); URINE PROTEIN 1+ (NEGATIVE)
[2017-04-17 15:47] LABS: URINE RBC >100 /hpf (0-3)
[2017-04-17 15:48] LABS: AMORP URATES FEW /hpf (NONE SEEN); EPI CELLS FEW /HPF; URINE BACTERIA FEW /hpf (NEGATIVE)
[2017-04-17 15:49] LABS: ALBUMIN 3.6 g/dl (3.5-5.0); ALK PHOS 75 U/L (32-92); ANION GAP 5 (8-16); BILIRUBIN,TOTAL 0.8 mg/dl (0.2-1.0); BLOOD UREA NITROGEN 12 mg/dl (7-18); CALCIUM 9.9 mg/dl (8.4-10.2); CHLORIDE 106 mmol/L (98-107); CO2 28 mmol/L (22-28); CREATININE 0.8 mg/dl (0.6-1.3); GLUCOSE,RANDOM 95 mg/dl (74-106); POTASSIUM 4.4 mmol/L (3.5-5.1); SGOT/AST 21 U/L (10-42); SGPT/ALT 10 U/L (10-40); SODIUM 139 mmol/L (136-145); TOT PROT 7.1 g/dl (6.4-8.3)
[2017-04-17 16:36] VITALS: BP 147/88; PULSE 78
== END 2017-04-17 16:37 | disposition home or self-care (01) ==
LOC: FER 14:20
DX: N93.9 Abnormal uterine and vaginal bleeding, unspecified (principal); I10 Essential (primary) hypertension; E78.5 Hyperlipidemia, unspecified; Z86.718 Personal history of other venous thrombosis and embolism
CPT/HCPCS: 36415; 80053; 81003; 81015; 85025; 85610; 85730; 86850; 86900; 86901; 87086; 87186; 99284-25